=== PATIENT | male | born 1975 ===

== ENCOUNTER 2022-10-24 05:30 | Day surgery (SDC) | payer OTHER ==
[~2022-10-24] VITALS: Ht 175.3 cm; Wt 82.6 kg
[~2022-10-24 05:30] MED LIST: ADDERALL PO; CIALIS5 MG PO; [UNRECOGNIZED DRUG - OTHER] PO
[2022-10-24] MEDS ORDERED: TRAMADOL HCL50 MG PO (10:55)
[2022-10-24] MEDS ORDERED: CEPHALEXIN500 MG PO (10:56)
== END 2022-10-24 11:40 | disposition home or self-care (01) ==
LOC: CIR.AMB 05:30
PROVIDERS: ATTEND Surgery
DX: N48.6 Induration penis plastica (principal); Z20.822 Contact with and (suspected) exposure to COVID-19; Z91.013 Allergy to seafood